=== PATIENT | male | born 1945 | race African-American/Black ===

== ENCOUNTER 2017-10-29 14:13 | Inpatient (IN) | payer MEDICARE, OTHER ==
[2017-10-29 17:06] VITALS: BMI 25.8
--- NOTE | 2017-10-29 21:38 | HP ---
CIWA Score - CIWA Score Nausea/Vomitin-No Nausea/No Vomiting Muscle Tremors: 2 Anxiety: 3 Agitation: 2 Paroxysmal Sweats: 2 Orientation: 1-Uncertain about Date Tacttile Disturbances: 0-None Auditory Disturbances: 1-Very Mild Visual Disturbances: 1-Very Mild Sensitivity Headache: 0-None Present CIWA-Ar Total Score: 12 Admission ROS BHS - HPI Chief Complaint: " My doctor told me I need to come to detox" Allergies/Adverse Reactions: Allergies Allergy/AdvReac Type Severity Reaction Status Date / Time No Known Allergies Allergy Verified 10/29/17 18:10 History of Present Illness: 72 yo male with hx of alcohol dependence is here seeking detox. PMHX: Fatty Liver, HTN, depression and anxiety . Reports anxiety and depression attributes to being in the . Denies suicidal / homicidal ideation or suicide attempts. Denies no prior admission to detox. Reports no signiifcant period of sobrierity, has attempted other times to self detox without success. Denies hx of seizures or blackouts related to drinking. Exam Limitations: No Limitations - Ebola screening Have you traveled outside of the country in the last 21 days: No Have you had contact with anyone from an Ebola affected area: No Have you been sick,other than usual withdrawal symptoms: No Do you have a fever: No - Review of Systems Constitutional: Chills, Loss of Appetite, Changes in sleep EENT: reports: Other (curreny under stending for glaucoma for right eye) Respiratory: reports: No Symptoms reported Cardiac: reports: Palpitations GI: reports: Nausea, Poor Fluid Intake : reports: Other (occasional incontinence) Musculoskeletal: reports: No Symptoms Reported Integumentary: reports: No Symptoms Reported Neuro: reports: Weakness Endocrine: reports: Increased Thirst Hematology: reports: No Symptoms Reported Psychiatric: reports: Orientated x3, Depressed Other Systems: Reviewed and Negative Patient History - Patient Medical History Hx Anemia: No Hx Asthma: No Hx Chronic Obstructive Pulmonary Disease (COPD): No Hx Cancer: No Hx Cardiac Disorders: No Hx Hypertension: No Hx Hypercholesterolemia: No Hx Pacemaker: No HX Cerebrovascular Accident: No Hx Seizures: No Hx Dementia: No Hx Diabetes: No Hx Gastrointestinal Disorders: No Hx Liver Disease: Yes (Fatty Liver ) Hx Genitourinary Disorders: No Hx Sexually Transmitted Disorders: Yes (syphillis x 3, gonorrhea x 3 ) Hx Renal Disease (ESRD): No Hx Thyroid Disease: No Hx Human Immunodeficiency Virus (HIV): Yes (HIV+ on medication dx 25 years ago ) Hx Hepatitis C: Yes Hx Depression: Yes Hx Suicide Attempt: No Hx Bipolar Disorder: No Hx Schizophrenia: No - Patient Surgical History Past Surgical History: No Hx Neurologic Surgery: No Hx Cataract Extraction: No Hx Cardiac Surgery: No Hx Lung Surgery: No Hx Breast Surgery: No Hx Breast Biopsy: No Hx Abdominal Surgery: No Hx Appendectomy: No Hx Cholecystectomy: No Hx Genitourinary Surgery: No Hx Section: No Hx Orthopedic Surgery: No Anesthesia Reaction: No - PPD History Previous Implant?: No Documented Results: Positive w/o proof PPD to be Administered?: No - Reproductive History Patient is a Female of Child Bearing Age (11 -55 yrs old): No - Smoking Cessation Smoking history: Former smoker Have you smoked in the past 12 months: No Hx Chewing Tobacco Use: No Initiated information on smoking cessation: No - Substance & Tx. History Hx Alcohol Use: Yes Hx Substance Use: Yes Substance Use Type: Alcohol Hx Substance Use Treatment: No - Substances Abused Alcohol Route: Oral Frequency: Daily Amount used: LIQUOR- 4 PINTS Age of first use: 42 Date of Last Use: 10/29/17 Family Disease History - Family Disease History Family Disease History: Heart Disease: Mother ( [place] ), CA: Father ( lung CA, alcoholism ), Other: Father, Mother Admission Physical Exam BHS - Vital Signs Vital Signs: Vital Signs - 24 hr 10/29/17 17:05 Temperature 97.1 F L Pulse Rate 63 Respiratory 20 Rate Blood Pressure 160/95 - Physical General Appearance: Yes: Appropriately Dressed, Thin, Anxious HEENTM: Yes: EOMI, Hearing grossly Normal, Normal ENT Inspection, Normocephalic , Normal Voice, JERROD, Pharynx Normal, Tm's normal, Other (wears glasses) Respiratory: Yes: Chest Non-Tender, Lungs Clear, Normal Breath Sounds, No Respiratory Distress, No Accessory Muscle Use Neck: Yes: Within Normal Limits Breast: Yes: Breast Exam Deferred Cardiology: Yes: Regular Rhythm, Regular Rate Abdominal: Yes: Normal Bowel Sounds, Non Tender, Flat, Soft Genitourinary: Yes: Within Normal Limits Back: Yes: Normal Inspection Musculoskeletal: Yes: Within Normal Limits Extremities: Yes: Normal Capillary Refill, Normal Inspection, Normal Range of Motion 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, Fully Oriented, Alert, Motor Strength 5/5 Integumentary: Yes: Normal Color, Warm, Moist Lymphatic: Yes: Within Normal Limits - Diagnostic (1) Alcohol dependence with withdrawal Current Visit: Yes Status: Acute (2) Elevated blood pressure reading in office with diagnosis of hypertension Current Visit: Yes Status: Acute (3) Glaucoma Current Visit: Yes Status: Chronic Qualifiers: Open angle glaucoma type: unspecified type Laterality: right Glaucoma stage: stage unspecified (4) HIV (human immunodeficiency virus infection) Current Visit: Yes Status: Acute (5) Anxiety and depression Current Visit: Yes Status: Acute Cleared for Admission [facility] - Detox or Rehab [facility] Level of Care: Medically Managed Detox Regimen/Protocol: Librium [facility] Breath Alcohol Content Breath Alcohol Content: 0.020 Urine Drug Screen - Results Drug Screen Negative: Yes
[2017-10-29] MEDS ORDERED: LOPERAMIDE HCL 2 MG CAPSULE PO PRN (21:51)
[2017-10-29] MEDS ORDERED: MENTHOL/PHENOL 1 EACH UD MM PRN (21:51)
[2017-10-29] MEDS ORDERED: IBUPROFEN 400 MG TABLET (FP) PO PRN (21:51)
[2017-10-29] MEDS ORDERED: P-EPHED 60MG/TRIPROLIDI 2.5MG TABLET PO PRN (21:51)
[2017-10-29] MEDS ORDERED: MAGNESIUM CITRATE 300 ML BOTTLE PO PRN (21:51)
[2017-10-29] MEDS ORDERED: ACETAMINOPHEN 325 MG TABLET (FP) PO PRN (21:51)
[2017-10-29] MEDS ORDERED: guaiFENesin/D-METHORPHAN HB 10 ML UNIT-DOSE CUPS PO PRN (21:51)
[2017-10-29] MEDS ORDERED: MAGNESIUM HYDROX 2400MG/30ML ORAL SUSPENSION 30 ML CUP PO PRN (21:51)
[2017-10-29] MEDS ORDERED: MAG HYDROX/AL HYDROX/SIMETH 30 ML UNIT-DOSE CUP PO PRN (21:51)
[2017-10-29] MEDS ORDERED: MELATONIN 5 MG TABLETS PO PRN (22:00)
[2017-10-29] MEDS ORDERED: chlordiazePOXIDE HCL 25 MG CAPSULE PO PRN (23:10)
--- NOTE | 2017-10-29 23:24 | PN ---
BHS Progress Note Note: Last Vital Signs Temp Pulse Resp BP Pulse Ox 97.7 F 63 18 176/100 10/29/17 23:06 10/29/17 23:06 10/29/17 23:06 10/29/17 23:06 Patient with asymptomatic elevated BP Plan: Increase fluids clonidine 0.1 mg qd
[2017-10-29] MEDS: chlordiazePOXIDE HCL 25 MG CAPSULE PO SCH (23:29)
[2017-10-29] MEDS ORDERED: chlordiazePOXIDE HCL 25 MG CAPSULE PO ONE (23:30)
[2017-10-29] MEDS ORDERED: cloNIDine HCL 0.1 MG TABLET PO ONE (23:30)
[2017-10-29] MEDS: THIAMINE HCL 100 MG TABLET (FP) PO SCH (23:34)
[2017-10-30 01:28] LABS: URINE APPEARANCE CLEAR; URINE BILIRUBIN NEGATIVE (<2.0 mg/dL); URINE COLOR LTYELLOW; URINE GLUCOSE (UA) NEGATIVE (NEGATIVE); URINE KETONE NEGATIVE (NEGATIVE); URINE LEUK ESTERASE NEGATIVE (NEGATIVE); URINE NITRITE NEGATIVE (NEGATIVE); URINE PROTEIN NEGATIVE (NEGATIVE); URINE UROBILINOGEN NEGATIVE mg/dL (0.2-1.0)
[2017-10-30] MEDS: hydrOXYzine PAMOATE 50 MG CAPSULE (FP) PO PRN (03:45)
[2017-10-30] MEDS: chlordiazePOXIDE HCL 25 MG CAPSULE PO SCH ×4 (05:19→22:52)
--- NOTE | 2017-10-30 09:38 | PN ---
S CIWA - CIWA Score Nausea/Vomitin Muscle Tremors: 3 Anxiety: 3 Agitation: 2 Paroxysmal Sweats: 1-Minimal Palms Moist Orientation: 0-Oriented Tacttile Disturbances: 1-Very Mild Itch/Numbness Auditory Disturbances: 1-Very Mild Visual Disturbances: 0-None Headache: 2-Mild CIWA-Ar Total Score: 16 BHS Progress Note (SOAP) Subjective: ALERT,IRRITABLE,ANXIOUS,INTERRUPTED SLEEP,TREMOR Objective: 10/30/17 09:36 Vital Signs Temperature 98.2 F 10/30/17 09:22 Pulse Rate 65 10/30/17 09:22 Respiratory Rate 14 10/30/17 09:22 Blood Pressure 149/92 10/30/17 09:22 O2 Sat by Pulse Oximetry (%) EKG NSR WITH FIRST DEGREE AV BLOCK 61/MIN PROLONG QT 390/392 NO CHEST PAIN,NO SOB,NO DIZZINESS Laboratory Last Values Urine Color Ltyellow 10/30/17 00:02 Urine Appearance Clear 10/30/17 00:02 Urine pH 5.0 (5.0-8.0) 10/30/17 00:02 Ur Specific [place] 1.015 (1.001-1.035) 10/30/17 00:02 Urine Protein Negative (NEGATIVE) 10/30/17 00:02 Urine Glucose (UA) Negative (NEGATIVE) 10/30/17 00:02 Urine Ketones Negative (NEGATIVE) 10/30/17 00:02 Urine Blood Negative (NEGATIVE) 10/30/17 00:02 Urine Nitrite Negative (NEGATIVE) 10/30/17 00:02 Urine Bilirubin Negative (<2.0 mg/dL) 10/30/17 00:02 Urine Urobilinogen Negative mg/dL (0.2-1.0) 10/30/17 00:02 Ur Leukocyte Esterase Negative (NEGATIVE) 10/30/17 00:02 LABS PENDING Assessment: 10/30/17 09:38 WITHDRAWAL SYMPTOM Plan: CONTINUE DETOX
--- NOTE | 2017-10-30 09:47 | CONSULT ---
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 Substance Abuse History: - Smoking Cessation. Smoking history: Former smoker. Have you smoked in the past 12 months: No. Hx Chewing Tobacco Use: No. Initiated information on smoking cessation: No. - Substance & Tx. History. Hx Alcohol Use: Yes. Hx Substance Use: Yes. Substance Use Type: Alcohol. Hx Substance Use Treatment: No. - Substances Abused. Alcohol. Route: Oral. Frequency: Daily. Amount used: LIQUOR- 4 PINTS. Age of first use: 42. Date of Last Use: 10/29/17 Medical History: HIV+, HTN, Glaucoma history, Fatty Liver history Psychiatric History: Roxane salmon anxiety and depressio history, reports no history of psychioatric admissions, reports no medications taking prior to admission as well Physical/Sexual Abuse/Trauma History: Denies Additional Comment: Observation. Detox Unit Care Protocol Mental Status Exam - Mental Status Exam Alert and Oriented to: Person Cognitive Function: Fair Patient Appearance: Unkempt Mood: Anxious Affect: Flat Patient Behavior: Sedated Speech Pattern: Delayed Voice Loudness: Mildly Soft/Quiet Thought Process: Circumstantial Thought Disorder: Being Controlled Hallucinations: Denies Suicidal Ideation: Denies Homicidal Ideation: Denies Insight/Judgement: Fair Sleep: Difficulty falling asleep Appetite: Weight loss Muscle strength/Tone: Mild Hypotonicity Gait/Station: Shuffling Additional Comments: Observation. 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 Detox Unit Care Protocol
[2017-10-30 10:15] LABS: HEMATOCRIT 35.4 % (35.4-49); HEMOGLOBIN 11.7 GM/dL (11.7-16.9); MCH 32.4 pg (25.7-33.7); MCHC 33.1 g/dl (32.0-35.9); MEAN CELL VOLUME 97.8 fl (80-96); MEAN PLT VOLUME 8.4 fl (7.5-11.1); PLATELET COUNT 135 K/MM3 (134-434); RBC 3.62 M/mm3 (4.00-5.60); RDW 13.5 % (11.9-15.9); WHITE BLOOD COUNT 4.9 K/mm3 (4.0-10.0)
[2017-10-30] MEDS: PRENATAL VITAMINS W/ FOLIC ACID TABLET (FP) PO SCH (10:17)
[2017-10-30] MEDS: ABACAVIR/DOLUTEGRAVIR/LAMIVUDI (TRIUMEQ) TABLET -NF PO SCH (10:18)
[2017-10-30] MEDS: ARTIFICIAL TEARS (POLYVINYL ALCOHOL 1.4%) OPTH DROPS OU PRN ×2 (10:18→22:59)
[2017-10-30 11:11] LABS: CHLORIDE 113 mmol/L (98-107); POTASSIUM 3.9 mmol/L (3.5-5.1); SODIUM 144 mmol/L (136-145)
[2017-10-30 12:18] LABS: ALBUMIN 3.4 g/dl (3.4-5.0); ALK PHOS 49 U/L (45-117); ANION GAP 8 (8-16); BILIRUBIN,TOTAL 0.5 mg/dL (0.2-1.0); BLOOD UREA NITROGEN 15 mg/dL (7-18); CALCIUM 8.5 mg/dL (8.5-10.1); CO2 23 mmol/L (21-32); CREATININE 0.8 mg/dL (0.7-1.3); GLUCOSE,RANDOM 84 mg/dL (74-106); SGOT/AST 10 U/L (15-37); SGPT/ALT 10 U/L (12-78); TOT PROT 6.5 g/dl (6.4-8.2)
--- NOTE | 2017-10-30 14:00 | EKG ---
Test Reason : Blood Pressure : / mmHG Vent. Rate : 061 BPM Atrial Rate : 061 BPM P-R Int : 250 ms QRS Dur : 074 ms QT Int : 390 ms P-R-T Axes : 060 -08 029 degrees QTc Int : 392 ms SINUS RHYTHM WITH 1ST DEGREE A-V BLOCK OTHERWISE NORMAL ECG NO PREVIOUS ECGS AVAILABLE Confirmed by FILIPPO FRANK MD ([id number]) on 10/30/2017 1:59:27 PM Referred By: Confirmed By:FILIPPO FRANK MD
[2017-10-30] MEDS: THIAMINE HCL 100 MG TABLET (FP) PO SCH (22:52)
[2017-10-31] MEDS: chlordiazePOXIDE HCL 25 MG CAPSULE PO SCH ×3 (05:13→18:05)
[2017-10-31] MEDS: ABACAVIR/DOLUTEGRAVIR/LAMIVUDI (TRIUMEQ) TABLET -NF PO SCH (07:24)
--- NOTE | 2017-10-31 10:23 | PN ---
S CIWA - CIWA Score Nausea/Vomitin Muscle Tremors: 3 Anxiety: 2 Agitation: 2 Paroxysmal Sweats: 1-Minimal Palms Moist Orientation: 0-Oriented Tacttile Disturbances: 1-Very Mild Itch/Numbness Auditory Disturbances: 1-Very Mild Visual Disturbances: 0-None Headache: 2-Mild CIWA-Ar Total Score: 15 BHS Progress Note (SOAP) Subjective: ALERT,IRRITABLE,ANXIOUS,INTERRUPTED SLEEP,PAIN IN THE BODY Objective: 10/31/17 10:21 Vital Signs Temperature 97.5 F L 10/31/17 09:18 Pulse Rate 80 10/31/17 09:18 Respiratory Rate 20 10/31/17 09:18 Blood Pressure 129/78 10/31/17 09:18 O2 Sat by Pulse Oximetry (%) Laboratory Last Values WBC 4.9 K/mm3 (4.0-10.0) 10/30/17 07:30 RBC 3.62 M/mm3 (4.00-5.60) L 10/30/17 07:30 Hgb 11.7 GM/dL (11.7-16.9) 10/30/17 07:30 Hct 35.4 % (35.4-49) 10/30/17 07:30 MCV 97.8 fl (80-96) H 10/30/17 07:30 MCH 32.4 pg (25.7-33.7) 10/30/17 07:30 MCHC 33.1 g/dl (32.0-35.9) 10/30/17 07:30 RDW 13.5 % (11.9-15.9) 10/30/17 07:30 Plt Count 135 K/MM3 (134-434) 10/30/17 07:30 MPV 8.4 fl (7.5-11.1) 10/30/17 07:30 Sodium 144 mmol/L (136-145) 10/30/17 07:30 Potassium 3.9 mmol/L (3.5-5.1) 10/30/17 07:30 Chloride 113 mmol/L (98-107) H 10/30/17 07:30 Carbon Dioxide 23 mmol/L (21-32) 10/30/17 07:30 Anion Gap 8 (8-16) 10/30/17 07:30 BUN 15 mg/dL (7-18) 10/30/17 07:30 Creatinine 0.8 mg/dL (0.7-1.3) 10/30/17 07:30 Creat Clearance w eGFR > 60 (>60) 10/30/17 07:30 Random Glucose 84 mg/dL (74-106) 10/30/17 07:30 Calcium 8.5 mg/dL (8.5-10.1) 10/30/17 07:30 Total Bilirubin 0.5 mg/dL (0.2-1.0) 10/30/17 07:30 AST 10 U/L (15-37) L 10/30/17 07:30 ALT 10 U/L (12-78) L 10/30/17 07:30 Alkaline Phosphatase 49 U/L (45-117) 10/30/17 07:30 Total Protein 6.5 g/dl (6.4-8.2) 10/30/17 07:30 Albumin 3.4 g/dl (3.4-5.0) 10/30/17 07:30 Urine Color Ltyellow 10/30/17 00:02 Urine Appearance Clear 10/30/17 00:02 Urine pH 5.0 (5.0-8.0) 10/30/17 00:02 Ur Specific [place] 1.015 (1.001-1.035) 10/30/17 00:02 Urine Protein Negative (NEGATIVE) 10/30/17 00:02 Urine Glucose (UA) Negative (NEGATIVE) 10/30/17 00:02 Urine Ketones Negative (NEGATIVE) 10/30/17 00:02 Urine Blood Negative (NEGATIVE) 10/30/17 00:02 Urine Nitrite Negative (NEGATIVE) 10/30/17 00:02 Urine Bilirubin Negative (<2.0 mg/dL) 10/30/17 00:02 Urine Urobilinogen Negative mg/dL (0.2-1.0) 10/30/17 00:02 Ur Leukocyte Esterase Negative (NEGATIVE) 10/30/17 00:02 RPR Titer Nonreactive (NONREACTIVE) 10/30/17 07:30 Assessment: 10/31/17 10:23 WITHDRAWAL SYMPTOM Plan: CONTINUE DETOX
[2017-10-31] MEDS: PRENATAL VITAMINS W/ FOLIC ACID TABLET (FP) PO SCH (11:02)
[2017-10-31] MEDS: chlordiazePOXIDE 5 MG CAPSULE PO SCH (22:38)
[2017-10-31] MEDS: THIAMINE HCL 100 MG TABLET (FP) PO SCH (22:38)
[2017-10-31] MEDS: ARTIFICIAL TEARS (POLYVINYL ALCOHOL 1.4%) OPTH DROPS OU PRN (22:38)
[2017-11-01] MEDS: chlordiazePOXIDE 5 MG CAPSULE PO SCH ×3 (05:20→17:36)
[2017-11-01] MEDS: ABACAVIR/DOLUTEGRAVIR/LAMIVUDI (TRIUMEQ) TABLET -NF PO SCH (08:01)
[2017-11-01] MEDS: PRENATAL VITAMINS W/ FOLIC ACID TABLET (FP) PO SCH (11:46)
[2017-11-01] MEDS: ARTIFICIAL TEARS (POLYVINYL ALCOHOL 1.4%) OPTH DROPS OU PRN (11:47)
--- NOTE | 2017-11-01 12:40 | PN ---
S Progress Note (SOAP) Subjective: ALERT,IRRITABLE,INTERRUPTED SLEEP Objective: 11/01/17 12:39 Vital Signs Temperature 96.9 F L 11/01/17 09:38 Pulse Rate 83 11/01/17 09:38 Respiratory Rate 18 11/01/17 09:38 Blood Pressure 149/81 11/01/17 09:38 O2 Sat by Pulse Oximetry (%) Assessment: 11/01/17 12:39 WITHDRAWAL SYMPTOM Plan: CONTINUE DETOX,DISCHARGE IN AM
[2017-11-01] MEDS: THIAMINE HCL 100 MG TABLET (FP) PO SCH (22:42)
[2017-11-01] MEDS: chlordiazePOXIDE HCL 10 MG CAPSULE PO SCH (22:42)
[2017-11-02] MEDS: hydrOXYzine PAMOATE 50 MG CAPSULE (FP) PO PRN (02:36)
[2017-11-02] MEDS: chlordiazePOXIDE HCL 10 MG CAPSULE PO SCH (05:39)
[2017-11-02] MEDS: ABACAVIR/DOLUTEGRAVIR/LAMIVUDI (TRIUMEQ) TABLET -NF PO SCH (08:33)
[2017-11-02 09:30] VITALS: BP 161/90; PULSE 83; TEMP 99
--- NOTE | 2017-11-02 11:26 | PN ---
S Progress Note (SOAP) Subjective: ALERT,NO COMPLAINT Objective: 11/02/17 11:24 Vital Signs Temperature 99.0 F 11/02/17 09:30 Pulse Rate 83 11/02/17 09:30 Respiratory Rate 20 11/02/17 09:30 Blood Pressure 161/90 11/02/17 09:30 O2 Sat by Pulse Oximetry (%) Assessment: 11/02/17 11:25 DETOX COMPLETED,NO WITHDRAWAL SYMPTOM Plan: DISCHARGE TODAY,FOLLOW UP WITH AFTER CARE PROGRAM ARRANGEMENT
--- NOTE | 2017-11-02 11:35 | DS ---
[facility] Detox Discharge Summary Admission Date: 10/29/17 Discharge Date: 11/02/17 - History Present History: Alcohol Dependence Additional Comments: FOLLOW UP WITH AFTER CARE PROGRAM ARRANGEMENT Pertinent Past History: HIV GLAUCOMA HYPERTENSION - Physical Exam Results Vital Signs: Vital Signs Temperature 99.0 F 11/02/17 09:30 Pulse Rate 83 11/02/17 09:30 Respiratory Rate 20 11/02/17 09:30 Blood Pressure 161/90 11/02/17 09:30 O2 Sat by Pulse Oximetry (%) Pertinent Admission Physical Exam Findings: WITHDRAWAL SIGNS AND SYMPTOM Vital Signs Temperature 99.0 F 11/02/17 09:30 Pulse Rate 83 11/02/17 09:30 Respiratory Rate 20 11/02/17 09:30 Blood Pressure 161/90 11/02/17 09:30 O2 Sat by Pulse Oximetry (%) Laboratory Last Values WBC 4.9 K/mm3 (4.0-10.0) 10/30/17 07:30 RBC 3.62 M/mm3 (4.00-5.60) L 10/30/17 07:30 Hgb 11.7 GM/dL (11.7-16.9) 10/30/17 07:30 Hct 35.4 % (35.4-49) 10/30/17 07:30 MCV 97.8 fl (80-96) H 10/30/17 07:30 MCH 32.4 pg (25.7-33.7) 10/30/17 07:30 MCHC 33.1 g/dl (32.0-35.9) 10/30/17 07:30 RDW 13.5 % (11.9-15.9) 10/30/17 07:30 Plt Count 135 K/MM3 (134-434) 10/30/17 07:30 MPV 8.4 fl (7.5-11.1) 10/30/17 07:30 Sodium 144 mmol/L (136-145) 10/30/17 07:30 Potassium 3.9 mmol/L (3.5-5.1) 10/30/17 07:30 Chloride 113 mmol/L (98-107) H 10/30/17 07:30 Carbon Dioxide 23 mmol/L (21-32) 10/30/17 07:30 Anion Gap 8 (8-16) 10/30/17 07:30 BUN 15 mg/dL (7-18) 10/30/17 07:30 Creatinine 0.8 mg/dL (0.7-1.3) 10/30/17 07:30 Creat Clearance w eGFR > 60 (>60) 10/30/17 07:30 Random Glucose 84 mg/dL (74-106) 10/30/17 07:30 Calcium 8.5 mg/dL (8.5-10.1) 10/30/17 07:30 Total Bilirubin 0.5 mg/dL (0.2-1.0) 10/30/17 07:30 AST 10 U/L (15-37) L 10/30/17 07:30 ALT 10 U/L (12-78) L 10/30/17 07:30 Alkaline Phosphatase 49 U/L (45-117) 10/30/17 07:30 Total Protein 6.5 g/dl (6.4-8.2) 10/30/17 07:30 Albumin 3.4 g/dl (3.4-5.0) 10/30/17 07:30 Urine Color Ltyellow 10/30/17 00:02 Urine Appearance Clear 10/30/17 00:02 Urine pH 5.0 (5.0-8.0) 10/30/17 00:02 Ur Specific [place] 1.015 (1.001-1.035) 10/30/17 00:02 Urine Protein Negative (NEGATIVE) 10/30/17 00:02 Urine Glucose (UA) Negative (NEGATIVE) 10/30/17 00:02 Urine Ketones Negative (NEGATIVE) 10/30/17 00:02 Urine Blood Negative (NEGATIVE) 10/30/17 00:02 Urine Nitrite Negative (NEGATIVE) 10/30/17 00:02 Urine Bilirubin Negative (<2.0 mg/dL) 10/30/17 00:02 Urine Urobilinogen Negative mg/dL (0.2-1.0) 10/30/17 00:02 Ur Leukocyte Esterase Negative (NEGATIVE) 10/30/17 00:02 RPR Titer Nonreactive (NONREACTIVE) 10/30/17 07:30 - Treatment Hospital Course: Detox Protocol Followed, Detoxed Safely, Responded well, Discharged Condition Good Patient has Accepted a Rehab Referral to: DECLINED - Medication Discharge Medications: Ambulatory Orders Abacavir/Dolutegravir/Lamivudi [Triumeq Tablet] 1 each PO DAILY 10/29/17 Latanoprost 0.005% Eye Drops [Xalatan 0.005% Eye Drops -] 1 drop OD 10/29/17 Polyvinyl Alcohol [Artificial Tears] 2 drop OU PRN PRN 10/29/17 - Diagnosis (1) Alcohol dependence with withdrawal Current Visit: Yes Status: Acute (2) HIV (human immunodeficiency virus infection) Current Visit: Yes Status: Acute (3) Glaucoma Current Visit: Yes Status: Chronic Qualifiers: Open angle glaucoma type: unspecified type Laterality: right Glaucoma stage: stage unspecified (4) Hypertension Current Visit: Yes Status: Acute - AMA Did Patient Leave Against Medical Advice: No
== END 2017-11-02 12:45 | disposition home or self-care (01) | DRG 897 ==
LOC: YASAS 14:13 → Y6N 18:49
PROVIDERS: ADMIT Surgery; ATTEND Surgery
PROC: HZ2ZZZZ Detoxification Services for Substance Abuse Treatment (ICD-10-PCS; principal; 2017-10-29)
DX: F10.230 Alcohol dependence with withdrawal, uncomplicated (principal); F10.280 Alcohol dependence with alcohol-induced anxiety disorder; F10.282 Alcohol dependence with alcohol-induced sleep disorder; F10.24 Alcohol dependence with alcohol-induced mood disorder; F41.8 Other specified anxiety disorders; I10 Essential (primary) hypertension; H40.9 Unspecified glaucoma; B18.2 Chronic viral hepatitis C; Z86.19 Personal history of other infectious and parasitic diseases
CPT/HCPCS: 36415; 71046-TC-FY; 80053; 81003; 85027; 86593; 93005; 93010; J0735